=== PATIENT | male | born 2000 | race Caucasian/White ===

== ENCOUNTER 2023-09-04 19:32 | Emergency (ER) | payer SELFPAY ==
[2023-09-04 19:58] VITALS: RESP 16; TEMP 97.1; O2SAT 99
--- NOTE | 2023-09-04 21:30 | ERPHSYRPT ---
- History of Present Illness Time Seen by Provider: 09/04/23 19:50 Source: patient Exam Limitations: no limitations Patient Subjective Stated Complaint: pt states that he had a seizure and hit his head. states he has been off of his medications for approx 1 yr. Triage Nursing Assessment: pt alert and oriented, answers questions approp. pt ambulates into room with steady gait noted. respirations nonlabored. skin warm and dry. pupils equal and reactive. bilat upper and lower ext strength equaland wnl Physician History: Patient 23-year-old male with a history of brain tumor resection presents to our ED for evaluation of a seizure. Patient states that he has intermittent seizures. Patient is noncompliant with his seizure medications. Patient hit his head today. Injury occurred prior to arrival. No LOC. No neck pain. Cervical spine cleared clinically. Symptoms are mild to moderate in intensity. Significant other at bedside. They voiced no other complaints or concerns at this time. Portions of this note were created with voice recognition technology. There may be grammatical, spelling, punctuation or sound alike errors Timing/Duration: today Severity: moderate Modifying Factors: Improves With: nothing Associated Symptoms: denies symptoms Allergies/Adverse Reactions: No Known Drug Allergies Allergy (Verified 09/04/23 19:58) Home Medications: No Reportable Medications [No Reported Medications] 09/04/23 [History] Hx Tetanus, Diphtheria Vaccination/Date Given: No Hx Influenza Vaccination/Date Given: No Hx Pneumococcal Vaccination/Date Given: No Immunizations Up to Date: No Travel Risk - International Travel Have you traveled outside of the country in past 3 weeks: No - Coronavirus Screening Are you exhibiting any of the following symptoms?: No Close contact with a COVID-19 positive Pt in past 14-21 Days: No - Vaccine Status Have you recieved a Covid-19 vaccination: No - Review of Systems Constitutional: No Symptoms, No Fever, No Chills Eyes: No Symptoms Ears, Nose, & Throat: No Symptoms Respiratory: No Symptoms, No Cough, No Dyspnea Cardiac: No Symptoms, No Chest Pain, No Edema, No Syncope Abdominal/Gastrointestinal: No Symptoms, No Abdominal Pain, No Nausea, No Vomiting, No Diarrhea Genitourinary Symptoms: No Symptoms, No Dysuria Musculoskeletal: No Symptoms, No Back Pain, No Neck Pain Skin: No Symptoms, No Rash Neurological: No Symptoms, No Dizziness, No Focal Weakness, No Sensory Changes Psychological: No Symptoms Endocrine: No Symptoms Hematologic/Lymphatic: No Symptoms Immunological/Allergic: No Symptoms All Other Systems: Reviewed and Negative - Past Medical History Pertinent Past Medical History: Yes Neurological History: Seizures - Past Surgical History Past Surgical History: Yes Other Surgical History: tubes in ears, wisdom teeth removal. tumor removal from brain 2020 - Social History Smoking Status: Never smoker Exposure to second hand smoke: No Drug Use: marijuana Patient Lives Alone: No - Nursing Vital Signs Nursing Vital Signs: Initial Vital Signs Temperature 97.1 F 09/04/23 19:45 Pulse Rate 83 09/04/23 19:45 Respiratory Rate 16 09/04/23 19:45 Blood Pressure 115/7 09/04/23 19:45 O2 Sat by Pulse Oximetry 99 09/04/23 19:45 Pain Scale Pain Intensity 10 - Physical Exam General Appearance: no apparent distress, alert Eye Exam: PERRL/EOMI, eyes nml inspection Ears, Nose, Throat Exam: normal ENT inspection, TMs normal, pharynx normal, moist mucous membranes, other (Bilateral ear tubes) Neck Exam: normal inspection, non-tender, supple, full range of motion Respiratory Exam: normal breath sounds, lungs clear, airway intact, No respiratory distress Cardiovascular Exam: regular rate/rhythm, normal heart sounds, normal peripheral pulses Gastrointestinal/Abdomen Exam: soft, normal bowel sounds, No tenderness, No mass Back Exam: normal inspection, normal range of motion, No CVA tenderness, No vertebral tenderness Extremity Exam: normal inspection, normal range of motion, pelvis stable Neurologic Exam: alert, oriented x 3, cooperative, normal mood/affect, sensation nml, No motor deficits Skin Exam: normal color, warm, dry, No rash Lymphatic Exam: No adenopathy SpO2 Interpretation: normal SpO2: 99 O2 Delivery: Room Air - Course Nursing assessment & vital signs reviewed: Yes - CT Exams Head CT Interpretation: Tele-radiologist Report (No comps. Prior left temporal craniotomy. Otherwise negative head) Ordered Tests: Active Orders 24 hr Category Date Time Status HEAD WITHOUT CONTRAST [CT] Stat Exams 09/04/23 19:59 Taken - Progress Progress: improved Progress Note: 23-year-old male presents to our ED status post seizure. Patient has a history of epilepsy. Patient had tumor resection in 2020. Patient has been noncompliant with his medication regimen as he felt that since the tumor was resected his epilepsy would have resolved. Patient had a seizure today and hit his head. Patient arrived to our ED ambulatory. Neurologic exam was normal. CT head negative for acute intracranial pathology. Patient declined complete workup including laboratory workup and pain medication due to insurance purposes. Patient only agreeable to CT head. Risk and benefits of obtaining a complete workup versus not obtaining complete workup was discussed with patient. Patient accepts all responsibility for independently electing to minimize workup. Patient appropriate to make independent medical decisions. Patient states he does not have insurance and wants to minimize ED cost. Patient reassessed. Patient ambulatory. Repeat neuroexam within normal limits. Will discharge home. Patient agrees to follow-up with primary care doctor within 48 hours for reevaluation. Patient states he has seizure medication prescribed to him by his neurologist which she will begin taking. Contact his neurologist in the morning for follow- up appointment. Portions of this note were created with voice recognition technology. There may be grammatical, spelling, punctuation or sound alike errors Complexity of problems addressed is moderate acute complicated No critical care time Complex of data reviewed and analyzed is moderate. Test ordered test reviewed and analyzed. Clinical correlation made between findings of CAT scan and history and physical exam. Risk of complication and a risk of morbidity/mortality of patient management is low. Will discharge home. Vital stable. Time to discharge patient is approximately 15 minutes. No social determinants of health present impede follow-up. 09/04/23 21:45 Counseled pt/family regarding: lab results, diagnosis, need for follow-up - Departure Departure Disposition: Home Clinical Impression: Nonadherence to medication, Seizure, Headache Condition: Stable Critical Care Time: No Referrals: ADAMS CUNHA NP [Primary Care Provider] - Follow up/PCP as directed
[2023-09-04 21:42] VITALS: BP 113/65; PULSE 84
--- NOTE | 2023-09-05 08:51 | XRAY ---
Indication: Seizure. Pain. Multiple contiguous axial images obtained through the head without contrast. Comparison: None There has been previous left temporal craniotomy/craniectomy with small focus of underlying encephalomalacia. Minimal left parietal scalp soft tissue swelling/hematoma. No acute intracranial hemorrhage, hydroceles, or mass effect. Rodrigues-white matter differentiation preserved. Fourth ventricle is midline. Remaining bony calvarium intact. Visualized paranasal sinuses and mastoid air cells are clear. Impression: 1. 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 2. Left parietal scalp soft tissue swelling/hematoma. No acute intracranial abnormalities.
== END 2023-09-04 21:56 | disposition home or self-care (01) ==
LOC: ED 19:32
DX: R56.9 Unspecified convulsions (principal); R51.9 Headache, unspecified; Z91.148 Patient's other noncompliance with medication regimen for other reason; Z28.310 Unvaccinated for COVID-19
CPT/HCPCS: 70450; 99283

== ENCOUNTER 2024-10-24 07:26 | Emergency (ER) | payer BC ==
[2024-10-24] MEDS ORDERED: EMLA Cream 5 GM TP ONE (07:30)
[2024-10-24] MEDS: EMLA Cream 5 GM TP ONE (07:31)
[2024-10-24 07:54] VITALS: TEMP 97.2
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
[2024-10-24] MEDS: Adacel Vial IM ONE (08:26)
[2024-10-24] MEDS ORDERED: Adacel Vial IM ONE (08:26)
[2024-10-24] MEDS ORDERED: TYLENOL 325 MG ONE (09:00)
[2024-10-24] MEDS: TYLENOL 325 MG PO ONE (09:00)
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
[2024-10-24 09:18] VITALS: O2SAT 98
[2024-10-24 09:20] VITALS: BP 121/67; PULSE 70; RESP 14
== END 2024-10-24 09:24 | disposition home or self-care (01) ==
LOC: ED 07:26
DX: S01.01XA Laceration without foreign body of scalp, initial encounter (principal); S00.01XA Abrasion of scalp, initial encounter; V47.5XXA Car driver injured in collision with fixed or stationary object in traffic accident, initial encounter; M54.2 Cervicalgia; Z79.899 Other long term (current) drug therapy; Z23 Encounter for immunization
CPT/HCPCS: 70450; 70486; 72125; 90471; 90715; 99285; A9270-GY